=== PATIENT | female | born 1975 | race Caucasian/White ===

== ENCOUNTER 2024-12-20 11:41 | Emergency (ER) | payer MEDICAID, SELFPAY ==
[2024-12-20 12:09] VITALS: BP 172/87; PULSE 60; RESP 19; TEMP 36.9; O2SAT 95; BMI 32.5
--- NOTE | 2024-12-20 12:12 | XR_ITS ---
EXAMINATION: PA lateral chest 2 views TECHNIQUE: Upright PA lateral chest 2 views Date and time: December 20, 2024, 12:21 p.m. INDICATIONS: Chest pain beginning 3 days ago. FINDINGS: Suspicious for early heart failure. Mild enlargement cardiac contour Prominent vascular congestion Suspicious for early edema at the lung bases IMPRESSION: Suspicious for early heart failure
[2024-12-20] MEDS: KETOROLAC INJ 30 MG/ML VIAL IM (12:46)
--- NOTE | 2024-12-20 13:12 | PD.EDBACK ---
ED Back Injury Pain RME/HPI General Chief Complaint: Back Pain/Injury Stated Complaint: Right lower back pain X 3 days Time Seen by Provider: 12/20/24 12:10 Arrival date/time: 12/20/24 11:41 49-year-old female presents to the Emergency Department today for complaints of right-sided rib pain worse with movement ongoing for the last 3 days patient reports no fever nausea or vomiting no recent injury Limitations: no limitations Related Data Home Medications ?Medication ?Instructions ?Recorded ?Confirmed omeprazole 40 mg capsule,delayed 40 mg PO QDAY 06/19/18 08/15/18 release meclizine 25 mg tablet 25 mg PO BID PRN Dizziness Or 08/15/18 08/15/18 Vertigo ondansetron HCl 4 mg tablet 4 mg PO QID PRN Nausea 08/15/18 08/15/18 (Zofran) Previous Rx's ?Medication ?Instructions ?Recorded cyclobenzaprine 10 mg tablet 10 mg PO TID PRN muscle spasm 10 12/20/24 days #30 tab-caps ibuprofen 800 mg tablet 800 mg PO TID PRN pain #30 tabs 12/20/24 Allergies Allergy/AdvReac Type Severity Reaction Status Date / Time No Known Allergies Allergy Verified 12/20/24 11:46 Review of Systems Review of Systems Systems Reviewed: All systems reviewed, normal except as documented Constitutional Constitutional: Reports system reviewed and no additional complaints, except as documented, Denies fever(s) and Denies headache(s) Eyes Eyes: Reports system reviewed and no additional complaints, except as documented and Denies blurry vision ENT Ears, Nose, Mouth, and Throat: Reports system reviewed and no additional complaints, except as documented, Denies headache(s), Denies nasal congestion and Denies nasal discharge Cardiovascular Cardiovascular: Reports system reviewed and no additional complaints, except as documented, Denies chest pain and Denies dyspnea Respiratory Respiratory: Reports system reviewed and no additional complaints, except as documented, Denies chest congestion, Denies cough and Denies dyspnea Gastrointestinal Gastrointestinal: Reports system reviewed and no additional complaints, except as documented and Denies abdominal pain Musculoskeletal Musculoskeletal: Reports system reviewed and no additional complaints, except as documented and Reports back pain Integumentary/Breasts Skin/Breast: Reports system reviewed and no additional complaints, except as documented and Denies rash Neurologic Neurologic: Reports system reviewed and no additional complaints, except as documented, Reports as per HPI and Denies headache(s) Past Medical History Past Medical History NEUROLOGIC: Negative Neurological Disorders or Seizures CARDIAC: Positive Cardiac Disorders; Negative Congestive Heart Failure RESPIRATORY: Negative Chronic Obstructive Pulmonary Disease (COPD) GASTROINTESTINAL: Positive Gastroesophageal Reflux Disease and Obesity GENITOURINARY: Negative Genitourinary Disorders or Renal Disease REPRODUCTIVE: Positive Previous Pregnancies MUSCULOSKELETAL: Negative Musculoskeletal Disorders ENDOCRINE: Negative Endocrine Disorders, Diabetes Mellitus Type 1 or Diabetes Mellitus Type 2 HEMATOLOGIC: Negative Blood Disorders OTHER HISTORY: Positive Blood Transfusions; Negative Falls, Blood Transfusion Reaction or Anesthesia Reactions Family History FAMILY HISTORY: Negative Family Cardiac Disorders Surgical History SURGICAL: Positive Cardiac Surgery, Open Heart Surgery, Pacemaker (no longer present), Eye Surgery (left eye sx), Tubal Ligation and Section (x4); Negative Endocrine Surgery, Ear Surgery, Abdominal Surgery or Joint Replacement Social History SMOKING STATUS: Never smoker ED Exam General Limitations: Present no limitations General appearance: Present alert and in no apparent distress Head Head exam: Present atraumatic, normocephalic and normal inspection Eye Eye exam: Present normal appearance, PERRL and EOMI; Absent conjunctival injection ENT ENT exam: Present normal exam, normal oropharynx and mucous membranes moist Neck Neck exam: Present normal inspection, full ROM and trachea midline Chest Chest inspection: Present normal inspection and symmetric chest wall rise Respiratory Respiratory exam: Present normal lung sounds bilaterally; Absent respiratory distress, wheezes, stridor or accessory muscle use Cardiovascular Cardiovascular exam: Present regular rate, normal rhythm and normal heart sounds Abdominal Exam Abdominal exam: Present soft and normal bowel sounds; Absent distention, tenderness, guarding, rebound or rigidity Extremities Exam Extremities exam: Present normal inspection and full ROM Back Exam Back exam: Present normal inspection, full ROM, tenderness, muscle spasm and paraspinal tenderness; Absent CVA tenderness (R) or CVA tenderness (L) Neurological Exam Neurological exam: Present alert, oriented X3 and CN II-XII intact Psychiatric Psychiatric exam: Present normal affect and normal mood Skin Skin exam: Present warm, dry, intact and normal color Course Quality Measures none Orders Category Date Time Status XR chest 2V Stat Exams 12/20/24 12:12 Completed Ketorolac Inj [Toradol Inj] Med 12/20/24 12:12 Discontinued 30 mg IM X1 ONE Vital Signs Vital signs: Vital Signs Temperature 98.4 F 12/20/24 12:09 Pulse Rate 60 12/20/24 12:09 Respiratory Rate 19 12/20/24 12:09 Blood Pressure 172/87 H 12/20/24 12:09 Pulse Oximetry (%) 95 12/20/24 12:09 Oxygen Delivery Method Room Air 12/20/24 12:09 O2 saturation 95% room air within normal limit Back Pain / Injury MDM Narrative MDM Narrative:: 49-year-old female presents to the Emergency Department today for complaints of right-sided rib pain worse with movement ongoing for the last 3 days patient reports no fever nausea or vomiting no recent injury On exam patient has mild tenderness over the right ribs and right upper back worse on palpation worse with movement Symptoms are consistent with a muscle injury X-ray obtained no acute emergent findings noted Patient given pain medication here Patient discharged home in no distress to follow-up with primary care doctor in the next 24 to 48 hours and for any worsening symptoms to return to the ER immediately Patient data External records reviewed:: [facility] previous records Clinical information provided by:: patient Social determinants that could affect healthcare access:: none Patient has the following chronic illnesses:: None How is presenting disease/condition affected by chronic disease/condition?: no chronic disease Evaluation data The following diagnostics were reviewed and interpreted by me:: radiology exam(s) Lab and/or radiology exams considered but not ordered:: Radiology obtained Interpretation Summary: Reviewed by me Medications / Prescriptions Medications or Prescriptions considered but not ordered:: Given Medication administrations:: Medication Administration History Discontinued Medications Ketorolac Tromethamine (Ketorolac Inj 30 Mg/Ml Vial) 30 mg IM X1 ONE Stop: 12/20/24 12:13 Last Admin: 12/20/24 12:46 Dose: 30 mg Documented By: OA Given Consultations Consultation(s) initiated? (list below): No Diagnosis Differential diagnosis back pain/injury: lumbar radiculopathy, strain of lumbar region, pyelonephritis and thoracic back pain Most likely diagnosis given after review of the tests above:: Muscle spasm Admission Indicated Admission indicated?: not indicated Admission Request Was there a request for admission?: No Disposition Plan Disposition Plan: Discharge Discharge Attestation Discharge Attestation: The patient and all family members were given an opportunity to ask questions and understood the discharge instructions. Discharge instructions specifically effects, indications for sooner follow up or return to the emergency department, and the expected course of current diagnosis. Patient condition: Stable Discharge Plan Plan Patient Disposition: HOME (Self Care) Discharge Disposition comment: Stable Prescriptions/Referrals Prescriptions/Med Rec: New cyclobenzaprine 10 mg tablet 10 mg PO TID PRN (Reason: muscle spasm) 10 Days Qty: 30 0RF ibuprofen 800 mg tablet 800 mg PO TID PRN (Reason: pain) Qty: 30 0RF No Action omeprazole 40 mg Capsule,Delayed Release(Dr/Ec) 40 mg PO QDAY ondansetron HCl [Zofran] 4 mg Tablet 4 mg PO QID PRN (Reason: Nausea) meclizine 25 mg Tablet 25 mg PO BID PRN (Reason: Dizziness Or Vertigo) Problem List Clinical Impression: Back muscle spasm Patient/Caregiver Discharge Instructions Education Materials: Back Safety: Turning Additional Instructions: Please follow up with your primary care doctor in the next 24-48hrs for any worsening symptoms return here immediately Print Language: Mohawk Stand Alone Forms: [place] Award Info., Work/School Release, Patient Portal Info Letter PA/PHILATELIC CONSULTANT Supervising Physician PA/STEPHON Supervising Physician: Dr. fagan
== END 2024-12-20 13:22 | disposition home or self-care (01) ==
LOC: SERX 13:18
PROVIDERS: Emergency Provider Nurse Practitioner Primary Care; PCP Family Medicine
DX: M62.830 Muscle spasm of back (principal)
CPT/HCPCS: 71046; 99283; J1885